=== PATIENT | female | born 1960 | race Caucasian/White ===

== ENCOUNTER 2023-09-24 16:18 | Emergency (ER) | payer MEDICARE, MEDICAID, SELFPAY ==
[2023-09-24 16:21] VITALS: BP 164/82; PULSE 88; TEMP 36.7; BMI 26.1
--- NOTE | 2023-09-24 16:33 | ED_ITS ---
HPI - Skin/Abscess/Foreign Bdy General Chief complaint: Skin/Abscess/Foreign Body Stated complaint: RASH Time Seen by Provider: 09/24/23 16:20 Source: patient Mode of arrival: walk-in History of Present Illness HPI narrative: Patient is a 63-year-old female who presents to the emergency department for 4- day history of rash to the extremities. She complains of redness, swelling and itching, she is concerned that she has poison [place]. She recently moved to a new home and states she has been cleaning, trying to air out the new home. She denies any throat swelling, difficulty breathing. She is noted to have large urticarial welts like areas to the bilateral upper extremities. Related Data Previous Rx's ?Medication ?Instructions ?Recorded hydroxyzine HCl 25 mg tablet 25 mg PO Q6H PRN itching #20 tabs 09/24/23 prednisone 20 mg tablet See Rx Instructions .Route 09/24/23 .COMPLEX #12 tabs Allergies Allergy/AdvReac Type Severity Reaction Status Date / Time No Known Drug Allergies Allergy Verified 09/24/23 16:26 Review of Systems ROS Constitutional Denies: fever or chills Ears, nose, mouth, and throat Denies: throat pain or nasal congestion Respiratory Denies: shortness of breath Gastrointestinal Denies: nausea or vomiting Integumentary/Breast Reports: rash, itching and redness Neurological Denies: headache Hematologic/Lymphatic Denies: easy bruising or easy bleeding Allergic/Immunologic Reports: hives Exam Narrative Exam Narrative: Gen.: Awake, alert, in no distress Head: Normocephalic, atraumatic ENT: Moist mucous membranes Respiratory: No respiratory distress Extremities: Moves extremities equally, no injuries noted Psych: Normal mood and affect Neuro: No focal neuro deficit Skin: Warm, dry, intact; Raised urticaria noted to the bilateral upper extremities, no petechiae or purpura. No blistering, drainage or wounds of the skin. No red streaking noted. No extension of the rash to the palms of the hands or mucous membranes Constitutional Vital Signs, click to edit/add: Last Vital Signs Temp 98.0 F 09/24/23 16:21 Pulse 88 09/24/23 16:21 Resp 14 09/24/23 16:21 BP 164/82 H 09/24/23 16:21 O2 Del Method Room Air 09/24/23 16:21 Course Vital Signs Vital signs: Vital Signs Temperature 98.0 F 09/24/23 16:21 Pulse Rate 88 09/24/23 16:21 Respiratory Rate 14 09/24/23 16:21 Blood Pressure 164/82 H 09/24/23 16:21 Oxygen Delivery Method Room Air 09/24/23 16:21 Temperature 98.0 F 09/24/23 16:21 Pulse Rate 88 09/24/23 16:21 Respiratory Rate 14 09/24/23 16:21 Blood Pressure 164/82 H 09/24/23 16:21 Oxygen Delivery Method Room Air 09/24/23 16:21 MDM - Skin/Abscess/Foreign Bdy MDM Narrative Medical decision making narrative: Exam is consistent with urticaria, likely something the patient was exposed to. She is started on a prednisone taper and hydroxyzine. Follow-up with PCP and return to the ER if symptoms change or worsen. Medical Records Attestation: I reviewed the patient's medical records. Discharge Plan Discharge Stand Alone Forms: Portal Instructions Chief Complaint: Skin/Abscess/Foreign Body Clinical Impression: Urticaria Patient Disposition: Home, Self-Care Time of Disposition Decision: 16:32 Condition: Good Prescriptions / Home Meds: New prednisone 20 mg tablet See Rx Instructions .ROUTE .COMPLEX Qty: 12 0RF Rx Instructions: 3 tabs daily for 2 days, then 2 tabs daily for 2 days, then 1 tab daily for 2 days hydroxyzine HCl 25 mg tablet 25 mg PO Q6H PRN (Reason: itching) Qty: 20 0RF Print Language: Yakut Instructions: Urticaria (ED) Referrals: Nicole Zamora NP [Primary Care Provider] - 1 week
== END 2023-09-24 16:40 | disposition home or self-care (01) ==
PROVIDERS: Emergency Provider Emergency Medicine; PCP Nurse Practitioner Family
DX: L50.9 Urticaria, unspecified (principal)
CPT/HCPCS: 99283